=== PATIENT | male | born 1955 | race Caucasian/White ===

== ENCOUNTER 2021-10-12 09:44 | Emergency (ER) | payer MEDICARE, OTHER ==
[~2021-10-12] VITALS: Ht 185.4 cm; Wt 110.0 kg
[2021-10-12 10:21] VITALS: BP 128/75
[2021-10-12 11:13] LABS: URINE BILIRUBIN - DIPSTICK NEGATIVE (NEGATIVE); URINE BLOOD DIPSTICK NEGATIVE (NEGATIVE); URINE COLOR YELLOW; URINE GLUCOSE - DIPSTICK NEGATIVE (NEGATIVE); URINE KETONE NEGATIVE (NEGATIVE); URINE LEUK ESTERASE NEGATIVE (NEGATIVE); URINE PH 6.5 (4.5-8.0); URINE PROTEIN - DIPSTICK NEGATIVE (NEG-TRACE); URINE SPECIFIC GRAVITY 1.015; URINE UROBILINOGEN - DIPSTICK 0.2 E.U./dL (0.2)
[2021-10-12 11:15] LABS: URINE NITRITE - DIPSTICK NEGATIVE (Negative)
[2021-10-12 11:23] LABS: HEMATOCRIT 45.3 % (39.0-50.0); HEMOGLOBIN 15.2 g/dl (14.0-18.0); IMMATURE GRANULOCYTES 0.1 % (0.0-5.0); MEAN CELL VOLUME 88.5 fL CALC (80.0-100.0); MEAN CORPUSCULAR HGB 29.7 pG CALC (26.0-32.0); MEAN CORPUSCULAR HGB CONC 33.6 g/dL CAL (32.0-36.0); NEUT# 4.36 thou/uL (1.82-7.42); RED BLOOD COUNT 5.12 mill/uL (4.70-6.10); RED CELL DISTRI WIDTH 12.8 % (11.5-15.5)
[2021-10-12 11:30] VITALS: BP 138/78
[2021-10-12] MEDS ORDERED: LISINOPRIL10 MG PO (11:30)
[2021-10-12] MEDS ORDERED: CRESTOR10 MG PO (11:31)
[2021-10-12] MEDS ORDERED: NIFEDIPINE60 MG PO (11:31)
[2021-10-12] MEDS ORDERED: ASPIRIN81 MG PO (11:31)
[2021-10-12 11:35] LABS: ALBUMIN 4.1 g/dL (3.2-5.0); ALKALINE PHOSPHATASE 87 u/l (38-126); ANION GAP 13 (6-22 (CALC)); BILIRUBIN, TOTAL 0.7 mg/dL (0.0-1.4); BUN 11 mg/dL (8-23); BUN/CREATININE RATIO 13 (12-20 (CALC)); CARBON DIOXIDE 24 mmol/l (22-30); CHLORIDE 108 mmol/l (95-108); CREATININE 0.8 mg/dL (0.7-1.3); GFR > 60 ML/MIN (>=60 (CALC)); GFR FOR AFR.AMER. > 60 ML/MIN (>=60 (CALC)); POTASSIUM 3.9 mmol/l (3.5-5.1); SGOT/AST 30 u/l (19-48); SODIUM 140 mmol/l (137-146); TOTAL PROTEIN 7.1 g/dL (6.3-8.2)
[2021-10-12 11:45] VITALS: BP 127/75
[2021-10-12 12:01] VITALS: BP 142/78
[2021-10-12] MEDS ORDERED: CYCLOBENZAPRINE10 MG PO (13:22)
[2021-10-12] MEDS ORDERED: VOLTAREN1%GEL TOP (13:22)
[2021-10-12 13:29] VITALS: BP 142/78
== END 2021-10-12 13:45 | disposition home or self-care (01) ==
LOC: ED 09:44
PROVIDERS: Family Medicine
DX: M54.9 Dorsalgia, unspecified (principal); I10 Essential (primary) hypertension; I25.10 Atherosclerotic heart disease of native coronary artery without angina pectoris; Z87.442 Personal history of urinary calculi

== ENCOUNTER 2021-10-17 12:45 | Emergency (ER) | payer MEDICARE, OTHER ==
[~2021-10-17] VITALS: Ht 185.4 cm; Wt 82.0 kg
[2021-10-17] VITALS (11 sets, daily range): BP systolic 159–186; BP diastolic 75–101
[~2021-10-17 12:45] MED LIST: ASPIRIN81 MG PO; CRESTOR10 MG PO; CYCLOBENZAPRINE10 MG PO; LISINOPRIL10 MG PO; NIFEDIPINE60 MG PO; VOLTAREN1%GEL TOP
[2021-10-17] MEDS ORDERED: TRAMADOL HCL50 MG PO (16:41)
== END 2021-10-17 17:10 | disposition home or self-care (01) ==
LOC: ED 12:45
DX: S00.83XA Contusion of other part of head, initial encounter (principal); S60.511A Abrasion of right hand, initial encounter; S00.81XA Abrasion of other part of head, initial encounter; S80.212A Abrasion, left knee, initial encounter; S46.911A Strain of unspecified muscle, fascia and tendon at shoulder and upper arm level, right arm, initial encounter; I10 Essential (primary) hypertension; E78.5 Hyperlipidemia, unspecified; I25.10 Atherosclerotic heart disease of native coronary artery without angina pectoris; Z95.1 Presence of aortocoronary bypass graft; Z95.5 Presence of coronary angioplasty implant and graft; Z79.82 Long term (current) use of aspirin; W18.39XA Other fall on same level, initial encounter; Y93.69 Activity, other involving other sports and athletics played as a team or group; Y92.838 Other recreation area as the place of occurrence of the external cause

== ENCOUNTER 2023-09-11 07:16 | Emergency (ER) | payer MEDICARE, OTHER ==
[~2023-09-11] VITALS: Ht 185.4 cm; Wt 82.0 kg
[2023-09-11] VITALS (23 sets, daily range): BP systolic 126–188; BP diastolic 62–95
[~2023-09-11 07:16] MED LIST changes: +TRAMADOL HCL50 MG PO
[2023-09-11] MEDS ORDERED: APRESOLINE50 MG PO (07:34)
[2023-09-11 07:53] LABS: BASO% 0.4 % (0-3); HEMATOCRIT 44.9 % (39.0-50.0); HEMOGLOBIN 14.8 g/dl (14.0-18.0); IMMATURE GRANULOCYTES 0.3 % (0.0-5.0); LYMPH% 31.8 % (15-41); MEAN CELL VOLUME 88.6 fL CALC (80.0-100.0); MEAN CORPUSCULAR HGB 29.2 pG CALC (26.0-32.0); MONO% 8.6 % (2-13); NEUT# 4.48 thou/uL (1.82-7.42); NEUT% 55.9 % (42-76); RED BLOOD COUNT 5.07 mill/uL (4.70-6.10); RED CELL DISTRI WIDTH 13.1 % (11.5-15.5)
[2023-09-11 08:09] LABS: ALBUMIN 4.3 g/dL (3.2-5.0); ALKALINE PHOSPHATASE 88 u/l (38-126); ANION GAP 12 (6-22 (CALC)); BILIRUBIN, TOTAL 0.6 mg/dL (0.2-1.3); BUN 20 mg/dL (8-23); BUN/CREATININE RATIO 21 (12-20 (CALC)); CARBON DIOXIDE 22 mmol/l (22-30); CHLORIDE 109 mmol/l (95-108); CREATININE 0.9 mg/dL (0.7-1.3); GFR FOR AFR.AMER. > 60 ML/MIN (>=60 (CALC)); GFR OTHER RACES > 60 ML/MIN (>=60 (CALC)); SGOT/AST 42 u/l (19-48); SODIUM 139 mmol/l (137-146); TOTAL PROTEIN 7.5 g/dL (6.3-8.2)
[2023-09-11] MEDS ORDERED: NITROGLYCERIN 0.4 MG/TAB SL ONE (08:20)
[2023-09-11] MEDS ORDERED: ASPIRIN 81 MG/TAB PO PRN (08:20)
[2023-09-11 08:30] LABS: ACT PARTIAL THROMBO TIME 27.1 SECONDS (20.0-32.5); INTERNATIONAL NORMALIZED RATIO 1.1 RATIO (0.7-1.3); PROTHROMBIN TIME 10.3 SECONDS (9.0-12.5)
[2023-09-11] MEDS ORDERED: ASPIRIN 81 MG/TAB PO ONE (08:55)
[2023-09-11] MEDS ORDERED: hydrALAZINE HCL 25 MG/TAB PO ONE (12:35)
== END 2023-09-11 12:55 | disposition home or self-care (01) ==
LOC: ED 07:16
PROVIDERS: Emergency Medicine
DX: I10 Essential (primary) hypertension (principal); I25.10 Atherosclerotic heart disease of native coronary artery without angina pectoris; Z95.1 Presence of aortocoronary bypass graft; Z95.5 Presence of coronary angioplasty implant and graft